=== PATIENT | female | born 1970 | race Caucasian/White ===

== ENCOUNTER 2022-09-10 08:09 | Outpatient (CLI) | payer OTHER, SELFPAY ==
[2022-09-10] VITALS (8 sets, daily range): BP systolic 116–152; BP diastolic 61–79; PULSE 61–80; RESP 12–18; O2SAT 96–99
--- NOTE | 2022-09-10 08:14 | DI.RAD.S_ITS ---
PROCEDURE: PAIN L INTERLAMINAR/CAUDAL INJ INDICATIONS: SPONDYLOSIS COMPARISON: [facility], MR, MR LUMBAR SPINE WITHOUT CONTRAST, 02/10/2021, 7:01. FINDINGS: Fluoroscopic spot filming was performed to verify placement of a spinal needle at the L5-S1 level, as labeled on the films. Appropriate location of the needle tip was confirmed by injection of iodinated contrast. IMPRESSION: No significant intraprocedural abnormality. Dictated by: Johnathon Cowan M.D. on 09/10/2022 at 10:54 Approved by: Johnathon Cowan M.D. on 09/10/2022 at 10:54
[2022-09-10] MEDS: MIDAZOLAM 2 MG/2 ML VIAL IV (08:52)
[2022-09-10] MEDS: BUPIVACAINE 0.25% (PF) VIAL 2 ML INJ (09:00)
[2022-09-10] MEDS: DEXAMETHASONE 10 MG/ML VIAL 20 MG INJ (09:00)
[2022-09-10] MEDS: IOPAMIDOL 15 ML VIAL 3 ML INJ (09:00)
--- NOTE | 2022-09-10 09:05 | P.PCN_ITS ---
Date/Time/Diagnoses Date of procedure: 09/10/22 Time of procedure: 09:05 Pre-procedure diagnosis: 1. HNP WITH RADICULAR FEATURES, 2. MULTILEVEL CENTRAL STENOSIS, Post-procedure diagnosis: same Procedure Notes Procedure: 1. FLUOROSCOPICALLY GUIDED CONTRAST CONTROLLED INTERLAMINAR EPIDURAL STEROID INJECTION - L5/S1 Indications: Yajaira is referred by Dr. Bazzi for treatment of Bilateral Foraminal Stenosis L>R LE symptoms. Physician: Marcelo Moreno Total Fluoroscopy time (seconds): 7 Total sedation minutes: 10 Complications: none Procedure in detail & Post-procedure care: FINDINGS Multilevel Central Spinal Stenosis with Nerve Root Compression DESCRIPTION OF PROCEDURE Fluoroscopically guided, contrast-controlled L5/S1 translaminar epidural steroid injection. Following review of allergy and review of potential side effects and complications, including, but not necessarily limited to, infection, allergic reaction, local tissue breakdown, temporary as well as permanent nerve injury, paralysis, stroke and possible , the patient indicated that the patient understood and agreed to proceed. An informed consent document was signed by the patient, witnessed by a nurse, and placed in the patient's chart. Additionally, other treatment options including modalities, medications, and physical therapy were reviewed with the patient. After review of previous anaesthesic history and IV conscious sedation the patient was deemed safe to proceed with today?s procedure with IV conscious sedation as ASA class II designation. Safety time-out was performed to confirm patient ID, procedure to be performed and site of procedure. IV sedation was accomplished with a combination of 2mg of Versed administered by the RN after DO order, titrated to patient comfort during the course of the procedure while the patient remained responsive to all verbal commands. In the prone position, following sterile prep and drape of the lumbar region, the L5/S1 translaminar space was identified fluoroscopically. The skin was anesthetized via a 25-gauge, 1.5-inch needle with 1% lidocaine solution. At this point, a 22-gauge short bevel spinal needle was atraumatically introduced and advanced under fluoroscopic guidance into the region of the L5/S1 translaminar space. Depth was confirmed on lateral view. Radiological data, including multiple fluoroscopic views of the lumbar spine, reveal a spinal needle at the L5/S1 translaminar space. Lateral views then show placement of the needle in the epidural space. Subsequent views show contrast material flowing superiorly and inferiorly in the epidural space. No vascular or intrathecal uptake is observed. At this point, using loss of resistance technique with saline and air, the epidural space was entered. This was confirmed following negative aspiration with injection of approximately 1.5cc of Isovue 200, showing excellent epidural flow without vascular or intrathecal uptake. At this point, 1 cc of 1% lidocain e solution combined with 3cc or 20mg of dexamethasone and 6mg of betamethasone was injected without incident. The patent tolerated the procedure without signs of symptoms of complications prior to transfer to the recovery area for further monitoring. The patient was then transferred to the recovery area where they were observed for an appropriate period of time after the injection. The patient reported a VAS score of 6 prior to the procedure and a post-procedure VAS of 0. POST OP INSTRUCTIONS The patient was provided a Pain Log to continue to record their response to the target-specific procedure prior to follow-up visit with their referring physician. Additionally, specific post-injection care instructions and a contact number to our office were provided if concerns arise regarding possible complications associated with the procedure are suspected.
[2022-09-10] MEDS: BETAMETHASONE 30 MG/5 ML MDV 6 MG INJ (09:12)
== END 2022-09-10 09:30 | disposition home or self-care (01) ==
LOC: RAD 08:10
PROVIDERS: PCP Family Medicine; Referring Provider Physical Medicine & Rehabilitation; Visit Provider Physical Medicine & Rehabilitation
DX: M51.17 Intervertebral disc disorders with radiculopathy, lumbosacral region (principal); M48.07 Spinal stenosis, lumbosacral region
CPT/HCPCS: 62323; 99152; J0702; J1100; J2250; J3490

== ENCOUNTER → 2023-01-28 10:57 | Outpatient (CLI) | payer OTHER, SELFPAY | PROVIDERS: Absent Provider Physical Medicine & Rehabilitation; Family Provider Family Medicine; PCP Family Medicine; Referring Provider Physical Medicine & Rehabilitation; Visit Provider Physical Medicine & Rehabilitation | DX: G35 Multiple sclerosis (principal); M41.9 Scoliosis, unspecified; M47.816 Spondylosis without myelopathy or radiculopathy, lumbar region | CPT/HCPCS: 95886; 95910 ==

== ENCOUNTER 2023-05-04 07:51 | Outpatient (CLI) | payer OTHER, SELFPAY ==
[2023-05-04] VITALS (9 sets, daily range): BP systolic 113–134; BP diastolic 72–89; PULSE 55–75; RESP 12–17; TEMP 36.6; O2SAT 99–100
--- NOTE | 2023-05-04 07:52 | DI.RAD.S_ITS ---
PROCEDURE: PAIN L INTERLAMINAR/CAUDAL INJ INDICATIONS: SPONDYLOSIS COMPARISON: [facility], MR, MR LUMBAR SPINE WITHOUT CONTRAST, 01/05/2023, 7:09. FINDINGS: Fluoroscopic spot filming was performed to verify placement of a spinal needle at the L3-L4 level, as labeled on the films. Appropriate location of the needle tip was confirmed by injection of iodinated contrast. IMPRESSION: Intraprocedural examination within normal limits. Dictated by: Johnathon Cowan M.D. on 05/04/2023 at 13:58 Approved by: Johnathon Cowan M.D. on 05/04/2023 at 13:58
[2023-05-04] MEDS: MIDAZOLAM 2 MG/2 ML VIAL IV (09:08)
[2023-05-04] MEDS: BETAMETHASONE 30 MG/5 ML MDV 6 MG INJ (09:12)
[2023-05-04] MEDS: IOPAMIDOL 15 ML VIAL 3 ML INJ (09:12)
[2023-05-04] MEDS: BUPIVACAINE 0.25% (PF) VIAL 2 ML INJ (09:12)
[2023-05-04] MEDS: DEXAMETHASONE 10 MG/ML VIAL 20 MG INJ (09:13)
--- NOTE | 2023-05-04 09:26 | P.PCN_ITS ---
Date/Time/Diagnoses Date of procedure: 05/04/23 Time of procedure: 09:26 Pre-procedure diagnosis: 1. HNP WITH RADICULAR FEATURES, 2. MULTILEVEL CENTRAL STENOSIS, Post-procedure diagnosis: same Procedure Notes Procedure: 1. FLUOROSCOPICALLY GUIDED CONTRAST CONTROLLED INTERLAMINAR EPIDURAL STEROID INJECTION - L3/4 Indications: Yajaira is referred by MAGUE Mendenhall for treatment of Bilateral Foraminal Stenosis L>R LE symptoms. Physician: Marcelo Moreno Total Fluoroscopy time (seconds): 15 Total sedation minutes: 12 Complications: none Procedure in detail & Post-procedure care: FINDINGS Multilevel Central Spinal Stenosis with Nerve Root Compression DESCRIPTION OF PROCEDURE Fluoroscopically guided, contrast-controlled L3/4 translaminar epidural steroid injection. Following review of allergy and review of potential side effects and complications, including, but not necessarily limited to, infection, allergic reaction, local tissue breakdown, temporary as well as permanent nerve injury, paralysis, stroke and possible , the patient indicated that the patient understood and agreed to proceed. An informed consent document was signed by the patient, witnessed by a nurse, and placed in the patient's chart. Additionally, other treatment options including modalities, medications, and physical therapy were reviewed with the patient. After review of previous anaesthesic history and IV conscious sedation the patient was deemed safe to proceed with today?s procedure with IV conscious sedation as ASA class II designation. Safety time-out was performed to confirm patient ID, procedure to be performed and site of procedure. IV sedation was accomplished with a combination of 2mg of Versed was administered by the RN after DO order, titrated to patient comfort during the course of the procedure while the patient remained responsive to all verbal commands. In the prone position, following sterile prep and drape of the lumbar region, the L3/4 translaminar space was identified fluoroscopically. The skin was anesthetized via a 25-gauge, 1.5-inch needle with 1% lidocaine solution. At this point, a 22-gauge short bevel spinal needle was atraumatically introduced and advanced under fluoroscopic guidance into the region of the L3/4 translaminar space. Depth was confirmed on lateral view. Radiological data, including multiple fluoroscopic views of the lumbar spine, reveal a spinal needle at the L3/4 translaminar space. Lateral views then show placement of the needle in the epidural space. Subsequent views show contrast material flowing superiorly and inferiorly in the epidural space. No vascular or intrathecal uptake is observed. At this point, using loss of resistance technique with saline and air, the epidural space was entered. This was confirmed following negative aspiration with injection of approximately 1.5 cc of Isovue 200, showing excellent epidural flow without vascular or intrathecal uptake. At this point, 1cc of 1% lidocaine solution combined with 3cc or 20mg of dexamethasone and 6mg of betamethasone was injected without incident. The patient tolerated the procedure well without signs or symptoms of complications prior to transfer to the recovery area continued monitoring without incident. The patient was then transferred to the recovery area where they were observed for an appropriate period of time after the injection. The patient reported a VAS score of 7 prior to the procedure and a post- procedure VAS of 1. POST OP INSTRUCTIONS The patient was provided a Pain Log to continue to record their response to the target-specific procedure prior to follow-up visit with their referring physician. Additionally, specific post-injection care instructions and a contact number to our office were provided if concerns arise regarding possible complications associated with the procedure are suspected.
== END 2023-05-04 09:42 | disposition home or self-care (01) ==
LOC: RAD 07:52
PROVIDERS: Family Provider Family Medicine; PCP Nurse Practitioner Family; Referring Provider Physical Medicine & Rehabilitation; Visit Provider Physical Medicine & Rehabilitation
DX: M51.16 Intervertebral disc disorders with radiculopathy, lumbar region (principal); M48.061 Spinal stenosis, lumbar region without neurogenic claudication
CPT/HCPCS: 62323; 99152; J0702; J1100; J2250; J3490

== ENCOUNTER → 2024-04-24 08:41 | Outpatient (CLI) | payer OTHER, SELFPAY ==
--- NOTE | 2024-04-24 08:44 | DI.RAD.S_ITS ---
PROCEDURE: XR LUMBAR SPINE MIN 4V INDICATIONS: BACK PAIN TECHNIQUE: 4 views of the lumbar spine were acquired, including bilateral oblique views. COMPARISON: [facility], CR, XR LUMBAR SPINE 2 OR 3 VIEWS, 01/21/2021, 12:57. FINDINGS: Bones: 5 nonrib-bearing vertebrae are present. There is redemonstration of dextroscoliosis of the lumbar spine centered at L3. No acute vertebral body compression fractures. No suspicious bony lesions. Moderate multilevel lumbar spondylosis with degenerative endplate changes, disc space loss, and endplate osteophyte formation. Overall, findings are stable to mildly progressed. Soft tissues: Overlying bowel gas pattern is normal. No suspicious soft tissue calcifications. Oblique images: No pars defects. IMPRESSION: No acute bony abnormality. Moderate multilevel lumbar spondylosis which appears stable to slightly progressed 6 compared to the prior study. Dictated by: Mukund Doe M.D. on 04/24/2024 at 9:33 Approved by: Mukund Doe M.D. on 04/24/2024 at 9:36
== END ==
PROVIDERS: Family Provider Family Medicine; PCP Nurse Practitioner Family; Referring Provider Physical Medicine & Rehabilitation; Visit Provider Physical Medicine & Rehabilitation
DX: M47.816 Spondylosis without myelopathy or radiculopathy, lumbar region (principal); M51.26 Other intervertebral disc displacement, lumbar region
CPT/HCPCS: 72110